=== PATIENT | female | born 2000 | race African-American/Black ===

== ENCOUNTER 2023-06-21 04:42 | Inpatient (IN) ==
[2023-06-21] MEDS ORDERED: D5 1/2 NS 1,000 ML 1,000 ML IV ONE (04:48)
[2023-06-21] MEDS: D5 1/2 NS 1,000 ML 1,000 ML IV SCH (04:50)
[2023-06-21 05:15] LABS: HEMOGLOBIN 9.8 g/dL (12.0-16.0); MEAN CORPUSCULAR HGB CONC 30.7 g/dL (33.0-35.0); MEAN CORPUSCULAR VOLUME 71.7 fL (80.0-100.0); MEAN PLATELET VOLUME 9.2 fL (7.4-11.0); RED BLOOD COUNT 4.46 X10^6/uL (3.5-5.4); RED CELL DISTRIBUTION WIDTH 18.1 % (11.6-16.5)
[2023-06-21 05:22] LABS: BASOPHILS % (AUTO) 0.2 % (0.2-1.0); EOSINOPHILS % (AUTO) 0.4 % (0.9-2.9); LYMPHOCYTES # (AUTO) 1.6 X10^3/uL (1.3-2.9); LYMPHOCYTES % (AUTO) 13.5 % (21.0-51.0); MONOCYTES % (AUTO) 8.4 % (0.0-13.0); NEUTROPHILS # (AUTO) 9.1 x10^3/uL (2.2-4.8); NEUTROPHILS % (AUTO) 77.5 % (42.0-75.0); PLATELET COUNT 219 X10^3/uL (150.0-450.0); WHITE BLOOD COUNT 11.7 X10^3/uL (3.6-10.0)
[2023-06-21 05:27] LABS: ALANINE AMINOTRANSFERASE 12 Units/L (12-78); ALBUMIN 2.8 g/dL (3.4-5.0); ALKALINE PHOSPHATASE 177 Units/L (46-116); ASPARTATE AMINO TRANSFERASE 14 Units/L (15-37); BLOOD UREA NITROGEN 7 mg/dL (7-18); CALCIUM 8.9 mg/dL (8.5-10.1); CARBON DIOXIDE 21.7 mmol/L (21-32); CHLORIDE 104 mmol/L (98-107); COR CA(FOR HYPOALB) 9.9 mg/dL (8.5-10.1); CREATININE 0.54 mg/dL (0.55-1.02); GLUCOSE 103 mg/dL (65-99); SODIUM 140 mmol/L (136-145); TOTAL PROTEIN 7.9 g/dL (6.4-8.2); eGFR NON BLACK RACES > 60 (>60)
[2023-06-21 05:29] LABS: AMNISURE ROM TEST THERE IS A RUPTURE (NO RUPTURE)
[2023-06-21 05:33] LABS: ANISOCYTOSIS SLIGHT; HYPOCHROMASIA 2+; MICROCYTOSIS SLIGHT; PLATELET MORPHOLOGY COMMENT NORMAL (NORMAL)
[2023-06-21] MEDS: OXYTOCIN 20 UNIT/1,000 ML-NS 20 UNIT/1,000 ML PLAST..BAG IV PRN (05:35)
[2023-06-21] MEDS ORDERED: REGLAN INJ 10 MG VIAL IVP PRN (06:01)
[2023-06-21] MEDS ORDERED: NUBAIN INJ 20 MG AMP IVP PRN (06:01)
[2023-06-21] MEDS ORDERED: PITOCIN IVP ONE (06:01)
[2023-06-21] MEDS ORDERED: ZOFRAN INJ 4 MG VIAL IVP PRN (06:01)
[2023-06-21] MEDS ORDERED: MOTRIN TAB 800 MG PO PRN ×2 (06:04→07:41)
[2023-06-21] MEDS ORDERED: D5 1/2 NS 1,000 ML 1,000 ML IV SCH (07:00)
[2023-06-21] MEDS: OXYTOCIN 20 UNIT/1,000 ML-NS 20 UNIT/1,000 ML PLAST..BAG IV SCH (07:20)
[2023-06-21] MEDS ORDERED: AMBIEN PO PRN (07:41)
[2023-06-21] MEDS ORDERED: MILK OF MAGNESIA PO PRN (07:41)
[2023-06-21] MEDS ORDERED: DERMOPLAST PAIN RELIEF SPRAY TOP PRN (07:41)
[2023-06-21] MEDS ORDERED: CONSULT PHARMACY - POTASSIUM & MAGNESIUM XX SCH (09:00)
[2023-06-21] MEDS: PRENATAL PLUS PO SCH (09:37)
[2023-06-21] MEDS: K-DUR TAB 20 MEQ PO SCH (09:37)
[2023-06-21 18:39] LABS: BILIRUBIN,URINE NEGATIVE (NEGATIVE); BLOOD/HEMOGLOBIN,URINE 5+ (NEGATIVE); GLUCOSE, URINE NEGATIVE (NEGATIVE); KETONES,URINE NEGATIVE (NEGATIVE); LEUKOCYTE ESTERASE ,URINE 3+ (NEGATIVE); NITRITES,URINE NEGATIVE (NEGATIVE); PH,URINE 6.5 (5.0 - 8.0); PROTEIN,URINE 3+ (NEGATIVE); UROBILINOGEN,URINE NORMAL (NORMAL)
[2023-06-21 18:41] LABS: APPEARANCE,URINE HAZY (CLEAR); COLOR,URINE BLOODY (YELLOW)
[2023-06-21 18:55] LABS: BACTERIA,URINE NEGATIVE /HPF (NEGATIVE); RBC,URINE TNTC /HPF (0-3); RENAL EPITHELIAL CELLS,URINE RARE /HPF (NEGATIVE); SQUAMOUS EPITHELIAL CELL,UR RARE /HPF (NEGATIVE)
[2023-06-21] MEDS: ADACEL or BOOSTRIX TDaP VACCINE IM ONE ×2 (21:26→21:28)
[2023-06-22 05:28] LABS: HEMATOCRIT 30.7 % (36.0-47.0); HEMOGLOBIN 9.4 g/dL (12.0-16.0)
[2023-06-22 05:31] VITALS: RESP 20
[2023-06-22 13:59] VITALS: BP 107/59; PULSE 90; TEMP 98; O2SAT 97
== END 2023-06-22 14:55 | disposition home or self-care (01) | DRG 807 ==
LOC: ER 04:42 → LD 05:13 → MED/SURG 08:09
PROVIDERS: ADMIT Specialist; ATTEND Specialist
DX: Z3A.38 38 weeks gestation of pregnancy; O80 Encounter for full-term uncomplicated delivery; Z37.0 Single live birth